=== PATIENT | male | born 1945 | race Caucasian/White ===

== ENCOUNTER 2020-04-05 09:31 | Outpatient (REF) | payer MEDICARE, SELFPAY ==
[2020-04-05 11:05] LABS: Estimated Average Glucose 128 mg/dL; Hemoglobin A1c % 6.1 %
[2020-04-05 11:12] LABS: Alanine Aminotransferase 45 U/L (0-40); Albumin Level 4.3 g/dL (3.5-5.0); Alkaline Phosphatase 66 U/L (39-117); Aspartate Amino Transferase 30 U/L (5-37); Bilirubin Direct 0.4 mg/dL (0.0-0.5); Bilirubin Total 0.7 mg/dL (0.0-1.0); Cholesterol 123 mg/dL; Glucose Fasting 151 mg/dL (60-99); HDL Cholesterol 44 mg/dL; LDL Cholesterol Calculated 61 mg/dl; Total Protein 6.6 g/dL (6.5-8.0); Triglycerides 93 mg/dL
[2020-04-05 12:33] LABS: Reflex LDLD? No
== END 2020-04-05 09:32 | disposition home or self-care (01) ==
LOC: HO.LAB 09:31
PROVIDERS: PCP Internal Medicine; Visit Provider Internal Medicine
DX: E11.9 Type 2 diabetes mellitus without complications (principal); E78.00 Pure hypercholesterolemia, unspecified
CPT/HCPCS: 36415; 80061; 80076; 82947; 83036

== ENCOUNTER 2020-10-04 11:10 | Outpatient (REF) | payer MEDICARE, SELFPAY ==
[2020-10-04 11:15] LABS: MANUAL DIFF FLAG NO
[2020-10-04 11:33] LABS: Basophils Percent Auto 0.6 % (0-2); Eosinophils Absolute Auto 0.2 X10*3/uL (0.0-0.4); Eosinophils Percent Auto 3.1 % (0-4); Hemoglobin 14.2 g/dl (14.0-18.0); Imm Gran Abs Auto 0.03 X10*3/uL (0.00-0.03); Imm Gran Pct Auto 0.5 % (0.0-0.4); Lymphocytes Absolute Auto 1.2 X10*3/uL (1.2-4.9); Lymphocytes Percent Auto 17.7 % (20-40); Mean Corpuscular HGB Conc 33.8 g/dl (31.0-36.0); Mean Corpuscular Hemoglobin 32.7 pg (27.0-33.0); Mean Corpuscular Volume 96.8 fL (80-98); Mean Platelet Volume 10.1 fL (9.4-12.4); Monocytes Absolute Auto 0.8 X10*3/uL (0.1-1.2); Monocytes Percent Auto 12.9 % (2-11); Neutrophils Absolute Auto 4.2 X10*3/uL (2.0-8.3); Neutrophils Percent Auto 65.2 % (45-73); Platelet Count 330 X10*3/uL (160-400); Red Blood Count 4.34 X10*6/uL (4.60-5.80); Red Cell Distribution Width 12.4 % (11.0-16.0); White Blood Count 6.5 X10*3/uL (4.8-10.8)
[2020-10-04 11:36] LABS: Estimated Average Glucose 137 mg/dL; Hemoglobin A1c % 6.4 %
[2020-10-04 12:02] LABS: PSA,Total (Free>4and<10) 1.09 ng/mL (0.00-4.00)
[2020-10-04 12:28] LABS: Glucose Urine UA NEG (NEG); Leukocyte Esterase Urine NEG (NEG); Nitrite Urine NEG (NEG); Urine Blood NEG (NEG); Urine Ketones NEG (NEG); Urine Protein NEG (NEG-TRACE)
[2020-10-04 12:40] LABS: Appearance Urine CLEAR; Color Urine YELLOW
[2020-10-04 12:46] LABS: Creatinine Urine 188.15 mg/dL; Microalbum/Creatinine Ratio Ur 7.4 ug/mg cr
[2020-10-04 12:49] LABS: Alanine Aminotransferase 84 U/L (0-40); Albumin Level 4.2 g/dL (3.5-5.0); Alkaline Phosphatase 64 U/L (39-117); Anion Gap 16 (12-20); Aspartate Amino Transferase 49 U/L (5-37); Blood Urea Nitrogen 14 mg/dL (9-16); Calcium 8.9 mg/dL (8.4-10.2); Carbon Dioxide 22 mmol/L (22-29); Chloride 105 mmol/L (96-108); Cholesterol 195 mg/dL; Estimated Glomerular Filt Rate > 60; Glucose Fasting 157 mg/dL (60-99); HDL Cholesterol 42 mg/dL; LDL Cholesterol Calculated 111 mg/dl; Potassium 3.9 mmol/L (3.3-5.1); Sodium 139 mmol/L (135-145); Total Protein 6.7 g/dL (6.5-8.0); Triglycerides 213 mg/dL
[2020-10-04 13:43] LABS: Reflex LDLD? No
== END 2020-10-04 11:11 | disposition home or self-care (01) ==
LOC: HO.LNP 11:10
PROVIDERS: Visit Provider Internal Medicine
DX: Z00.00 Encounter for general adult medical examination without abnormal findings (principal); E11.9 Type 2 diabetes mellitus without complications; I10 Essential (primary) hypertension; E78.00 Pure hypercholesterolemia, unspecified; Z12.5 Encounter for screening for malignant neoplasm of prostate
CPT/HCPCS: 80053; 80061; 81003; 82043; 83036; 84153; 85025

== ENCOUNTER 2021-01-11 11:25 | Outpatient (REF) | payer MEDICARE, SELFPAY ==
[2021-01-11 12:07] LABS: Estimated Average Glucose 126 mg/dL; Hemoglobin A1C 151.2111 umol/L
[2021-01-11 13:08] LABS: Alanine Aminotransferase 69 U/L (0-40); Albumin Level 4.2 g/dL (3.5-5.0); Alkaline Phosphatase 60 U/L (39-117); Aspartate Amino Transferase 43 U/L (5-37); Bilirubin Direct 0.4 mg/dL (0.0-0.5); Bilirubin Total 0.9 mg/dL (0.0-1.0); Cholesterol 198 mg/dL; Glucose Fasting 159 mg/dL (60-99); HDL Cholesterol 46 mg/dL; LDL Cholesterol Calculated 119 mg/dl; Total Protein 6.6 g/dL (6.5-8.0); Triglycerides 166 mg/dL
[2021-01-11 14:01] LABS: Reflex LDLD? No
== END 2021-01-11 11:26 | disposition home or self-care (01) ==
LOC: HO.LNP 11:25
PROVIDERS: PCP Internal Medicine; Visit Provider Internal Medicine
DX: E11.9 Type 2 diabetes mellitus without complications (principal); E78.00 Pure hypercholesterolemia, unspecified
CPT/HCPCS: 80061; 80076; 82947; 83036

== ENCOUNTER 2021-04-28 10:09 | Outpatient (REF) | payer MEDICARE, SELFPAY ==
[2021-04-28 10:38] LABS: Alanine Aminotransferase 38 U/L (0-40); Albumin Level 4.3 g/dL (3.5-5.0); Alkaline Phosphatase 67 U/L (39-117); Aspartate Amino Transferase 24 U/L (5-37); Bilirubin Direct 0.6 mg/dL (0.0-0.5); Bilirubin Total 1.3 mg/dL (0.0-1.0); Cholesterol 125 mg/dL; HDL Cholesterol 43 mg/dL; LDL Cholesterol Calculated 62 mg/dl; Total Protein 6.7 g/dL (6.5-8.0); Triglycerides 104 mg/dL
[2021-04-28 11:35] LABS: Reflex LDLD? No
== END 2021-04-28 10:10 | disposition home or self-care (01) ==
LOC: HO.LNP 10:09
PROVIDERS: Visit Provider Internal Medicine
DX: E78.00 Pure hypercholesterolemia, unspecified (principal)
CPT/HCPCS: 80061; 80076

== ENCOUNTER 2021-10-06 10:56 | Outpatient (REF) | payer MEDICARE, SELFPAY ==
[2021-10-06 11:00] LABS: MANUAL DIFF FLAG NO
[2021-10-06 11:44] LABS: Appearance Urine CLEAR; Basophils Percent Auto 0.6 % (0-2); Color Urine YELLOW; Eosinophils Absolute Auto 0.2 X10*3/uL (0.0-0.4); Eosinophils Percent Auto 2.3 % (0-4); Glucose Urine UA NEG (NEG); Hematocrit 40.8 % (42.0-52.0); Hemoglobin 14.5 g/dl (14.0-18.0); Imm Gran Abs Auto 0.02 X10*3/uL (0.00-0.03); Imm Gran Pct Auto 0.3 % (0.0-0.4); Leukocyte Esterase Urine NEG (NEG); Lymphocytes Absolute Auto 1.4 X10*3/uL (1.2-4.9); Lymphocytes Percent Auto 21.6 % (20-40); Mean Corpuscular HGB Conc 35.5 g/dl (31.0-36.0); Mean Corpuscular Hemoglobin 33.1 pg (27.0-33.0); Mean Corpuscular Volume 93.2 fL (80.0-98.0); Mean Platelet Volume 9.6 fL (9.4-12.4); Monocytes Absolute Auto 0.9 X10*3/uL (0.1-1.2); Monocytes Percent Auto 13.8 % (2-11); Neutrophils Absolute Auto 4.1 x10*3/uL (2.0-8.3); Neutrophils Percent Auto 61.4 % (45-73); Nitrite Urine NEG (NEG); Platelet Count 320 X10*3/uL (160-400); Red Blood Count 4.38 X10*6/uL (4.60-5.80); Red Cell Distribution Width 12.3 % (11.0-16.0); Specific Gravity - Urine 1.025 (1.005-1.025); Urine Blood NEG (NEG); Urine Ketones 5 MG/DL (NEG); Urine Protein NEG (NEG-TRACE); White Blood Count 6.6 X10*3/uL (4.8-10.8)
[2021-10-06 12:03] LABS: Estimated Average Glucose 123 mg/dL; Hemoglobin A1c % 5.9 %
[2021-10-06 12:09] LABS: Squamous Epithelial Cell Urine TRACE /LPF
[2021-10-06 12:10] LABS: RBC Urine 0-2 /HPF (0); WBC Urine 0-2 /HPF (0-4)
[2021-10-06 12:15] LABS: Alanine Aminotransferase 46 U/L (0-40); Albumin Level 4.4 g/dL (3.5-5.0); Alkaline Phosphatase 57 U/L (39-117); Anion Gap 17 (12-20); Aspartate Amino Transferase 29 U/L (5-37); Bilirubin Total 1.3 mg/dL (0.0-1.0); Blood Urea Nitrogen 16 mg/dL (9-16); Calcium 9.3 mg/dL (8.4-10.2); Carbon Dioxide 23 mmol/L (22-29); Chloride 103 mmol/L (96-108); Cholesterol 121 mg/dL; Estimated Glomerular Filt Rate > 60; Glucose Fasting 142 mg/dL (60-99); HDL Cholesterol 48 mg/dL; LDL Cholesterol Calculated 57 mg/dl; Potassium 3.6 mmol/L (3.3-5.1); Sodium 139 mmol/L (135-145); Total Protein 6.7 g/dL (6.5-8.0); Triglycerides 83 mg/dL
[2021-10-06 12:39] LABS: Creatinine Urine 180.93 mg/dL; Microalbum/Creatinine Ratio Ur 6.6 ug/mg cr
== END 2021-10-06 10:57 | disposition home or self-care (01) ==
LOC: HO.LNP 10:56
PROVIDERS: Visit Provider Internal Medicine
DX: Z00.00 Encounter for general adult medical examination without abnormal findings (principal); E11.9 Type 2 diabetes mellitus without complications; I10 Essential (primary) hypertension; E78.00 Pure hypercholesterolemia, unspecified; Z12.5 Encounter for screening for malignant neoplasm of prostate
CPT/HCPCS: 80053; 80061; 81001; 82043; 83036; 84153; 85025

== ENCOUNTER 2021-11-07 10:42 | Day surgery (SDC) | payer MEDICARE, SELFPAY ==
[2021-11-02 09:25] VITALS: BMI 33.0
--- NOTE | 2021-11-04 13:12 | MHC.SHP ---
Pre-Procedural Eval Section A Date of Service: 11/04/21 The patient is an INPATIENT: No Changes since office visit: No Cold of Flu in the past 2 weeks, No New Medical Problems, No Changes in Medication and No Patient answered all questions The History & Physical has been completed within 30 days and I have reviewed it.: Yes Section B Chief Complaint: descemetocele,ectropion Allergies: Allergies Allergy/AdvReac Type Severity Reaction Status Date / Time No Known Allergies Allergy Unverified 11/13/19 15:40 Plan Diagnosis/Plan: Unchanged I have reviewed the history and physical and performed a pertinent physical examination on my patient. No changes have occurred unless specified.
[2021-11-07] VITALS (8 sets, daily range): BP systolic 141–181; BP diastolic 66–87; PULSE 76–90; RESP 15–18; TEMP 36.1–36.3; O2SAT 95–98
[2021-11-07 13:31] LABS: Glucose, Whole Blood 144 mg/dL (60-115)
[2021-11-07] MEDS: Lactated Ringers 500 ML 50 ML IVCONT (13:59)
--- NOTE | 2021-11-07 14:04 | P.CONAN_ITS ---
HPI - Anesthesia Eval Consult details Narrative: 76 M for Evisceration right eye HT[facility] Past Medical History Medical History (Updated 11/02/21 @ 09:22 by Kasandra Cook RN) Diabetes Elevated cholesterol HTN (hypertension) Functional capacity: independent ambulation Family History Family history of problems with anesthesia: No Surgical History Surgical History (Updated 11/02/21 @ 09:24 by Kasandra Cook RN) H/O colonoscopy Hx laparoscopic cholecystectomy Hx of appendectomy Hx of bilateral cataract extraction Hx of exploratory laparotomy History of Problems with Anesthesia: No Social History Social History Are you a primary lawn care specialist to a significant other at home: No Do you presently have visiting nurse or other home services: No Patient Tobacco Use Status: Former Tobacco user Quit Date: age 46 Tobacco use type: Cigarette Use of substances other than those prescribed or required for medical reasons: Yes Substance Use Frequency: Occasionally Have you been hit, kicked, punched, or otherwise hurt by someone within the past year? If so, by whom?: No Are you DNR?: No Advance Directives Information Provided: Yes (as above noted) Advance Directives on File: No Recently lost weight without trying: No Eating poorly because of decreased appetite: No Nutrition Risks: Surgical patient >75years Poor oral hygiene: No (lower partial) Meds Allergies Allergy/AdvReac Type Severity Reaction Status Date / Time No Known Allergies Allergy Unverified 11/13/19 15:40 Active Medications: Current Medications Lactated Ringer's (Lr) 500 mls @ 50 mls/hr IVCONT .Q10H MARIANNA Last Admin: 11/07/21 13:59 Dose: 50 mls/hr Povidone Iodine (Povidone Iodine 5 % Ophth Soln 30 Ml Bottle) 1 appl EYE-RIGHT PREOP PRN PRN Reason: Pre-Op Surgical Implant Prophy Home Medications Medication Instructions Recorded Confirmed Last Taken Type atorvastatin 10 mg tablet 10 mg PO DAILY 11/02/21 11/02/21 Unknown History diltiazem HCl 240 mg capsule,24 240 mg PO DAILY 11/02/21 11/02/21 11/07/21 History hr,extended release hydrochlorothiazide 25 mg tablet 25 mg PO DAILY 11/02/21 11/02/21 Unknown Hist ory metformin 500 mg tablet 500 mg PO BID 11/02/21 11/02/21 Unknown History quinapril 40 mg tablet 40 mg PO DAILY 11/02/21 11/02/21 Unknown History Exam Exam Date and Time: November 07, 2021 1404 Height,Weight and Vital Signs: Height 5 ft 10 in Weight 104.326 kg Last Vital Signs Temp 97.0 F 11/07/21 13:19 Pulse 76 11/07/21 13:19 Resp 18 11/07/21 13:19 BP 178/84 H 11/07/21 13:19 Pulse Ox 98 11/07/21 13:19 O2 Del Method 11/07/21 13:19 Pertinent Lab Results Pertinent Lab Results: Laboratory Tests 11/07/21 13:27 POC Glucose 144 H Airway Mallampati Class: IV Neck ROM: Full Partial: Lower Loose/Missing/Broken Teeth: Yes (Poor dention globally ) Heart: S1,S2 Lungs: b/l breath sounds Assessment and Plan Assessment Anesthesia Assessment: Anesthesia Plan Discussed and Chart Reviewed Final Anesthetic Review Family History of Problems with Anesthesia: No History of Problems with Anesthesia: No NPO: Yes ASA Class: III Final Preanesthetic Review: Meds/Allgs Chart Reviewed, Consent Obtained/Reviewed and Anes Risks/Benef Reviewed Patient Risk: Intermediate Procedure Risk: Intermediate Anesthetic Plan Anesthetic Plan: GA Disposition: Standard PACU
--- NOTE | 2021-11-07 14:30 | HO.PNOPHT ---
Ophthalmology Procedure Procedure Date of Service: 11/07/21 Ophthalmology Viscoelastic: Not Applicable Ophthalmology Lenses: Not Applicable Procedure Notes: PREOPERATIVE DIAGNOSIS: Right lower lid entropion POSTOPERATIVE DIAGNOSIS: Same PROCEDURE: Right lateral tarsal strip SURGEON: Lacho Daniel M.D. ANESTHESIA: MAC with Local ESTIMATED BLOOD LOSS: None COMPLICATIONS: None After obtaining informed consent, the patient was brought to the operating room suite, placed in supine position. After adequate sedation per Anesthesia, a local injection of 2% Lidocaine was given temporally to the right periorbital area. A canthotomy cantholysis then was created first utilizing a hemostat followed by excision with Guerra scissors out to the periosteal rim. A lateral tarsal strip was created utilizing a combination of sharp and blunt dissection with Asya scissors, as well as 15 blade. Once the lateral tarsal strip was created, double armed 5-0 goretex suture was utilized to attach the lateral tarsal strip to the lateral temporal periorbital periosteum. The tarsal was adjusted until adequate aposition of the lid to globe was achieved and sutured in place. The skin was then closed with 6-0 plain suture. Erythromycin ointment was placed on the wound. The patient tolerated the procedure well and will be followed up.
--- NOTE | 2021-11-08 03:19 | OP_ITS ---
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 PROCEDURE PERFORMED: Evisceration of the right eye. ESTIMATED BLOOD LOSS: COMPLICATIONS: ANESTHESIA: General. 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 DESCRIPTION OF PROCEDURE: After obtaining informed consent, the patient was brought to the operating room suite and placed in the supine position. After being placed under general anesthesia, the right eye was prepped and draped in the usual sterile fashion. Attention was directed to the right eye____ where a retrobulbar injection was performed. A lid speculum was placed and a 360-degree peritomy was completed. Previously placed hardware was run into during the peritomy and removed. Once the conjunctiva was freed, the cornea was excised from the eye utilizing a 15 Supersharp blade. An evisceration spoon was then utilized to remove the internal contents of the eye. An 18 silicone ball was placed into the globe after the eye was treated with an alcohol sponge. The sclera appeared white prior to the placement of the ball. The wound was then closed with a 5-0 Surgilon. The conjunctiva was closed separately with a 6-0 plain suture. Antibiotic ointment was instilled. The patient tolerated the procedure well. The lid speculum was removed and the patient will be seen in followup in a week or two. Lacho Daniel MD KH/MODL / [id number] MTDD
== END 2021-11-07 18:05 | disposition home or self-care (01) ==
PROVIDERS: PCP Internal Medicine; Visit Provider Ophthalmology
PROC: (CPT 65093; principal; 2021-11-07 14:10)
PROC: (CPT 65093; 2021-11-07 14:10)
DX: H18.7 Other and unspecified corneal deformities (principal); H02.102 Unspecified ectropion of right lower eyelid; E11.9 Type 2 diabetes mellitus without complications; I10 Essential (primary) hypertension; Z79.84 Long term (current) use of oral hypoglycemic drugs; Z79.899 Other long term (current) drug therapy; H02.002 Unspecified entropion of right lower eyelid
CPT/HCPCS: 65093; 67917; 82947; 88300; 88304; J0131; J1170; J2405; J2795; J3010

== ENCOUNTER 2022-04-14 10:42 | Outpatient (REF) | payer MEDICARE, SELFPAY ==
[2022-04-14 11:12] LABS: Estimated Average Glucose 137 mg/dL; Hemoglobin A1c % 6.4 %
[2022-04-14 11:31] LABS: Alanine Aminotransferase 71 U/L (0-40); Albumin Level 4.4 g/dL (3.5-5.0); Alkaline Phosphatase 62 U/L (39-117); Aspartate Amino Transferase 46 U/L (5-37); Bilirubin Direct 0.5 mg/dL (0.0-0.5); Bilirubin Total 1.8 mg/dL (0.0-1.0); Cholesterol 138 mg/dL; Glucose Fasting 141 mg/dL (60-99); HDL Cholesterol 52 mg/dL; LDL Cholesterol Calculated 66 mg/dl; Total Protein 6.8 g/dL (6.5-8.0); Triglycerides 100 mg/dL
[2022-04-14 13:51] LABS: Reflex LDLD? No
== END 2022-04-14 10:43 | disposition home or self-care (01) ==
LOC: HO.LNP 10:42
PROVIDERS: Visit Provider Internal Medicine
DX: E11.9 Type 2 diabetes mellitus without complications (principal); E78.00 Pure hypercholesterolemia, unspecified
CPT/HCPCS: 80061; 80076; 82947; 83036

== ENCOUNTER 2022-10-12 11:40 | Outpatient (REF) | payer MEDICARE, SELFPAY ==
[2022-10-12 12:03] LABS: MANUAL DIFF FLAG NO
[2022-10-12 12:21] LABS: Basophils Absolute Auto 0.1 X10*3/uL (0.0-0.2); Basophils Percent Auto 0.9 % (0-2); Eosinophils Absolute Auto 0.2 X10*3/uL (0.0-0.4); Eosinophils Percent Auto 3.2 % (0-4); Hematocrit 38.7 % (42.0-52.0); Hemoglobin 13.4 g/dl (14.0-18.0); Imm Gran Abs Auto 0.03 X10*3/uL (0.00-0.03); Imm Gran Pct Auto 0.4 % (0.0-0.4); Lymphocytes Absolute Auto 1.3 X10*3/uL (1.2-4.9); Lymphocytes Percent Auto 18.7 % (20-40); Mean Corpuscular HGB Conc 34.6 g/dl (31.0-36.0); Mean Corpuscular Hemoglobin 32.6 pg (27.0-33.0); Mean Corpuscular Volume 94.2 fL (80.0-98.0); Mean Platelet Volume 9.3 fL (9.4-12.4); Monocytes Absolute Auto 0.9 X10*3/uL (0.1-1.2); Monocytes Percent Auto 12.3 % (2-11); Neutrophils Absolute Auto 4.5 x10*3/uL (2.0-8.3); Neutrophils Percent Auto 64.5 % (45-73); Platelet Count 384 X10*3/uL (160-400); Red Blood Count 4.11 X10*6/uL (4.60-5.80); White Blood Count 6.9 X10*3/uL (4.8-10.8)
[2022-10-12 12:22] LABS: Appearance Urine Clear; Color Urine Yellow; Glucose Urine UA Negative (Negative); Leukocyte Esterase Urine Trace (Negative); Nitrite Urine Negative (Negative); PH 6.5 (5.0-9.0); UMIC TRIGGER UACC YES; Urine Blood Negative (Negative); Urine Ketones Trace mg/dL (Negative); Urine Protein Trace mg/dL (Neg-Trace)
[2022-10-12 12:24] LABS: Bacteria Urine None Seen (None Seen); Hyaline Casts Urine 0-2 /LPF (0-2); RBC Urine 0-2 /HPF (0-2); Squamous Epithelial Cell Urine 0-2 /HPF (0-2); WBC Urine 0-5 /HPF (0-5)
[2022-10-12 12:29] LABS: Alanine Aminotransferase 31 U/L (0-40); Albumin Level 4.2 g/dL (3.5-5.0); Alkaline Phosphatase 59 U/L (39-117); Anion Gap 15 (12-20); Aspartate Amino Transferase 21 U/L (5-37); Bilirubin Total 0.5 mg/dL (0.0-1.0); Blood Urea Nitrogen 18 mg/dL (9-16); Calcium 9.5 mg/dL (8.4-10.2); Carbon Dioxide 23 mmol/L (22-29); Chloride 103 mmol/L (96-108); Estimated Glomerular Filt Rate > 60; Glucose Fasting 140 mg/dL (60-99); Sodium 137 mmol/L (135-145)
[2022-10-12 12:33] LABS: Estimated Average Glucose 120 mg/dL; Hemoglobin A1c % 5.8 %
[2022-10-12 12:50] LABS: PSA,Total (Free>4and<10) 1.22 ng/mL (0.00-4.00)
[2022-10-12 13:10] LABS: Creatinine Urine 221.42 mg/dL; Microalbum/Creatinine Ratio Ur 7.6 ug/mg cr
== END 2022-10-12 11:41 | disposition home or self-care (01) ==
LOC: HO.LNP 11:40
PROVIDERS: Visit Provider Internal Medicine
DX: Z00.00 Encounter for general adult medical examination without abnormal findings (principal); Z12.5 Encounter for screening for malignant neoplasm of prostate; E11.9 Type 2 diabetes mellitus without complications; E78.00 Pure hypercholesterolemia, unspecified; I10 Essential (primary) hypertension
CPT/HCPCS: 80053; 81001; 82043; 83036; 84153; 85025

== ENCOUNTER 2023-04-20 07:55 | Outpatient (REF) | payer MEDICARE, SELFPAY ==
[2023-04-20 08:14] LABS: MANUAL DIFF FLAG NO
[2023-04-20 08:18] LABS: Basophils Percent Auto 0.6 % (0-2); Eosinophils Absolute Auto 0.2 X10*3/uL (0.0-0.4); Eosinophils Percent Auto 2.4 % (0-4); Hematocrit 37.4 % (42.0-52.0); Hemoglobin 13.1 g/dl (14.0-18.0); Imm Gran Abs Auto 0.02 X10*3/uL (0.00-0.03); Imm Gran Pct Auto 0.3 % (0.0-0.4); Lymphocytes Absolute Auto 1.1 X10*3/uL (1.2-4.9); Lymphocytes Percent Auto 17.1 % (20-40); Mean Corpuscular Hemoglobin 32.3 pg (27.0-33.0); Mean Corpuscular Volume 92.3 fL (80.0-98.0); Mean Platelet Volume 8.7 fL (9.4-12.4); Monocytes Absolute Auto 0.8 X10*3/uL (0.1-1.2); Neutrophils Absolute Auto 4.5 x10*3/uL (2.0-8.3); Neutrophils Percent Auto 67.6 % (45-73); Platelet Count 371 X10*3/uL (160-400); Red Blood Count 4.05 X10*6/uL (4.60-5.80); Red Cell Distribution Width 12.7 % (11.0-16.0); White Blood Count 6.7 X10*3/uL (4.8-10.8)
[2023-04-20 08:50] LABS: Estimated Average Glucose 120 mg/dL; Hemoglobin A1c % 5.8 % (<6.0)
[2023-04-20 09:02] LABS: Alanine Aminotransferase 27 U/L (0-40); Albumin Level 4.1 g/dL (3.5-5.0); Alkaline Phosphatase 59 U/L (39-117); Aspartate Amino Transferase 24 U/L (5-37); Bilirubin Direct 0.4 mg/dL (0.0-0.5); Bilirubin Total 0.8 mg/dL (0.0-1.0); Cholesterol 127 mg/dL (<200); Glucose Fasting 148 mg/dL (60-99); HDL Cholesterol 44 mg/dL (>40); LDL Cholesterol Calculated 69 mg/dL (<100); Total Protein 6.8 g/dL (6.5-8.0); Triglycerides 70 mg/dL (<150)
[2023-04-20 10:43] LABS: Reflex LDLD? No
== END 2023-04-20 07:56 | disposition home or self-care (01) ==
LOC: HO.LAB 07:55
PROVIDERS: PCP Internal Medicine; Visit Provider Internal Medicine
DX: Z13.6 Encounter for screening for cardiovascular disorders (principal); D64.9 Anemia, unspecified
CPT/HCPCS: 36415; 80061; 80076; 82947; 83036; 85025

== ENCOUNTER 2023-07-26 10:48 | Outpatient (REF) | payer MEDICARE, SELFPAY ==
[2023-07-26 10:52] LABS: MANUAL DIFF FLAG NO
[2023-07-26 11:15] LABS: Basophils Absolute Auto 0.1 X10*3/uL (0.0-0.2); Basophils Percent Auto 0.8 % (0-2); Eosinophils Absolute Auto 0.2 X10*3/uL (0.0-0.4); Eosinophils Percent Auto 3.5 % (0-4); Hematocrit 36.8 % (42.0-52.0); Hemoglobin 12.8 g/dl (14.0-18.0); Imm Gran Abs Auto 0.04 X10*3/uL (0.00-0.03); Imm Gran Pct Auto 0.6 % (0.0-0.4); Lymphocytes Percent Auto 15.8 % (20-40); Mean Corpuscular HGB Conc 34.8 g/dl (31.0-36.0); Mean Corpuscular Hemoglobin 32.4 pg (27.0-33.0); Mean Corpuscular Volume 93.2 fL (80.0-98.0); Mean Platelet Volume 9.3 fL (9.4-12.4); Monocytes Absolute Auto 0.9 X10*3/uL (0.1-1.2); Monocytes Percent Auto 13.9 % (2-11); Neutrophils Absolute Auto 4.3 x10*3/uL (2.0-8.3); Neutrophils Percent Auto 65.4 % (45-73); Platelet Count 372 X10*3/uL (160-400); Red Blood Count 3.95 X10*6/uL (4.60-5.80); White Blood Count 6.5 X10*3/uL (4.8-10.8)
[2023-07-26 11:46] LABS: Iron 53 mcg/dL (45-160); Percent Iron Saturation 19 % (15-50); Total Iron Binding Capacity 282 mcg/dL (228-428); Unsaturated Iron Binding 229 ug/dL
== END 2023-07-26 10:49 | disposition home or self-care (01) ==
LOC: HO.LNP 10:48
PROVIDERS: Visit Provider Internal Medicine
DX: D64.9 Anemia, unspecified (principal)
CPT/HCPCS: 83540; 85025

== ENCOUNTER 2023-10-15 10:42 | Outpatient (REF) | payer MEDICARE, SELFPAY ==
[2023-10-15 10:47] LABS: MANUAL DIFF FLAG NO
[2023-10-15 11:07] LABS: Basophils Percent Auto 0.4 % (0-2); Eosinophils Absolute Auto 0.2 X10*3/uL (0.0-0.4); Eosinophils Percent Auto 2.5 % (0-4); Hematocrit 38.1 % (42.0-52.0); Hemoglobin 13.4 g/dl (14.0-18.0); Imm Gran Abs Auto 0.04 X10*3/uL (0.00-0.03); Imm Gran Pct Auto 0.5 % (0.0-0.4); Lymphocytes Absolute Auto 1.3 X10*3/uL (1.2-4.9); Mean Corpuscular HGB Conc 35.2 g/dl (31.0-36.0); Mean Corpuscular Hemoglobin 32.8 pg (27.0-33.0); Mean Corpuscular Volume 93.4 fL (80.0-98.0); Mean Platelet Volume 9.3 fL (9.4-12.4); Monocytes Percent Auto 12.4 % (2-11); Neutrophils Absolute Auto 5.5 x10*3/uL (2.0-8.3); Neutrophils Percent Auto 68.2 % (45-73); Platelet Count 433 X10*3/uL (160-400); Red Blood Count 4.08 X10*6/uL (4.60-5.80); Red Cell Distribution Width 12.8 % (11.0-16.0)
[2023-10-15 11:22] LABS: Estimated Average Glucose 117 mg/dL; Hemoglobin A1c % 5.7 % (<6.0)
[2023-10-15 11:26] LABS: Alanine Aminotransferase 16 U/L (0-40); Albumin Level 4.3 g/dL (3.5-5.0); Alkaline Phosphatase 67 U/L (39-117); Anion Gap 11 (12-20); Aspartate Amino Transferase 15 U/L (5-37); Bilirubin Total 0.8 mg/dL (0.0-1.0); Blood Urea Nitrogen 21 mg/dL (9-16); Calcium 10.3 mg/dL (8.4-10.2); Carbon Dioxide 25 mmol/L (22-29); Chloride 102 mmol/L (96-108); Cholesterol 127 mg/dL (<200); Estimated Glomerular Filt Rate > 60; Glucose Fasting 133 mg/dL (60-99); HDL Cholesterol 46 mg/dL (>40); LDL Cholesterol Calculated 63 mg/dL (<100); Potassium 4.1 mmol/L (3.3-5.1); Sodium 134 mmol/L (135-145); Total Protein 7.2 g/dL (6.5-8.0); Triglycerides 91 mg/dL (<150)
[2023-10-15 11:43] LABS: PSA,Total (Free>4and<10) 1.36 ng/mL (0.00-4.00)
[2023-10-15 13:27] LABS: Appearance Urine Clear; Color Urine Yellow; Glucose Urine UA Negative (Negative); Leukocyte Esterase Urine Negative (Negative); Nitrite Urine Negative (Negative); Urine Blood Negative (Negative); Urine Ketones Trace mg/dL (Negative); Urine Protein Negative (Neg-Trace)
[2023-10-15 13:31] LABS: Bacteria Urine None Seen (None Seen); Hyaline Casts Urine 0-2 /LPF (0-2); RBC Urine 0-2 /HPF (0-2); Squamous Epithelial Cell Urine 0-2 /HPF (0-2); WBC Urine 0-5 /HPF (0-5)
[2023-10-15 14:28] LABS: Creatinine Urine 112.58 mg/dL; Microalbum/Creatinine Ratio Ur 6.2 ug/mg cr (<30)
== END 2023-10-15 10:43 | disposition home or self-care (01) ==
LOC: HO.LNP 10:42
PROVIDERS: Visit Provider Internal Medicine
DX: Z00.00 Encounter for general adult medical examination without abnormal findings (principal); I10 Essential (primary) hypertension; E78.00 Pure hypercholesterolemia, unspecified; E11.40 Type 2 diabetes mellitus with diabetic neuropathy, unspecified; Z12.5 Encounter for screening for malignant neoplasm of prostate
CPT/HCPCS: 80053; 80061; 81001; 82043; 82570; 83036; 84153; 85025

== ENCOUNTER 2024-04-08 11:14 | Outpatient (REF) | payer MEDICARE, SELFPAY ==
[2024-04-08 11:52] LABS: Alanine Aminotransferase 15 U/L (0-40); Albumin Level 4.3 g/dL (3.5-5.0); Alkaline Phosphatase 68 U/L (39-117); Aspartate Amino Transferase 21 U/L (5-37); Bilirubin Direct 0.2 mg/dL (0.0-0.5); Bilirubin Total 0.5 mg/dL (0.0-1.0); Cholesterol 181 mg/dL (<200); Glucose Fasting 139 mg/dL (60-99); HDL Cholesterol 50 mg/dL (>40); LDL Cholesterol Calculated 103 mg/dL (<100); Total Protein 7.6 g/dL (6.5-8.0); Triglycerides 144 mg/dL (<150)
[2024-04-08 11:55] LABS: Estimated Average Glucose 120 mg/dL; Hemoglobin A1c % 5.8 % (<6.0); Total Hemoglobin (HGBA1C) 3713.4256 umol/L
--- OUTSIDE RECORDS SUMMARY | 2024-04-08 12:50 | XMS_ITS ---
Author Organization Ishmael Melissa MD Address [address] [place], [place] [id number] Care Team Providers Care Hide Washer Name Role Phone StevieIshmael lambert Primary Care Provider [phone] Results Component Value Reference Range Notes Complete Blood Count Auto Di ff Reviewed date:10/15/2023 12:58:01 PM Interpretation: Performing Lab:[facility], [address] [place] [phone] Notes/Report: White Blood Count 8.0 4.8-10.8 X10*3/uL Red Blood Count 4.08 4.60-5.80 X10*6/uL Hemoglobin 13.4 14.0-18.0 g/dl Hematocrit 38.1 42.0-52.0 % Mean Corpuscular Volume 93.4 80.0-98.0 fL Mean Corpuscular Hemoglobin 32.8 27.0-33.0 pg Mean Corpuscular HGB Conc 35.2 31.0-36.0 g/dl Red Cell Distribution Width 12.8 11.0-16.0 % Platelet Count 433 160-400 X10*3/uL Mean Platelet Volume 9.3 9.4-12.4 fL Neutrophils Percent Auto 68.2 45-73 % Imm Gran Pct Auto 0.5 0.0-0.4 % Lymphocytes Percent Auto 16.0 20-40 % Monocytes Percent Auto 12.4 2-11 % Eosinophils Percent Auto 2.5 0-4 % Basophils Percent Auto 0.4 0-2 % NRBC Pct Auto 0.0 0.0-0.2 /100WBC Neutrophils Absolute Auto 5.5 2.0-8.3 x10*3/u L Imm Gran Abs Auto 0.04 0.00-0.03 X10*3/uL Lymphocytes Absolute Auto 1.3 1.2-4.9 X10*3/u L Monocytes Absolute Auto 1.0 0.1-1.2 X10*3/uL Eosinophils Absolute Auto 0.2 0.0-0.4 X10*3/u L Basophils Absolute Auto 0.0 0.0-0.2 X10*3/uL NRBC Abs Auto 0.000 0.0-0.012 X10*3/uL Comprehensive [place]. Panel Fa st Reviewed date:10/15/2023 12:42:29 PM Interpretation: Performing Lab:[facility], [address] [place] [phone] Notes/Report: Sodium 134 135-145 mmol/L Potassium 4.1 3.3-5.1 mmol/L Chloride 102 96-108 mmol/L Carbon Dioxide 25 22-29 mmol/L Anion Gap 11 12-20 Blood Urea Nitrogen 21 9-16 mg/dL Creatinine 0.92 0.5-1.4 mg/dL Estimated Glomerular Filt Rate > 60 NOTE: For -Vincentian individuals, multiply the result by 1.210. Chronic Kidney Disease: Estimated GFR < 60 mL/min/1.73m2 Severe Kidney Disease: Estimated GFR < 15 mL/min/1.73m2 Glucose Fasting 133 60-99 mg/dL A fasting glucose of 126 mg/dl or greater on more than one occasion is considered diagnostic of diabetes. Calcium 10.3 8.4-10.2 mg/dL Bilirubin Total 0.8 0.0-1.0 mg/dL Aspartate Amino Transferase 15 5-37 U/L Alanine Aminotransferase 16 0-40 U/L Total Protein 7.2 6.5-8.0 g/dL Albumin Level 4.3 3.5-5.0 g/dL Alkaline Phosphatase 67 39-117 U/L Lipid Panel Reviewed date:10/15/2023 12:39:41 PM Interpretation: Performing Lab:[address] [phone] Notes/Report: Triglycerides 91 <150 mg/dL Desirable Triglyceride: less than 150 mg/dL Borderline High Triglyceride 150-199 mg/dL High Triglyceride: 200-499 mg/dL Very High Triglyceride: greater than or equal to 5OO mg/dL Cholesterol 127 <200 mg/dL Desirable Cholesterol: less than 200 mg/dL Borderline High Cholesterol: 200-239 mg/dL High Cholesterol: greater than 239 mg/dL LDL Cholesterol Calculated 63 <100 mg/dL Desirable LDL: less than 100 mg/dL Near Optimal/Above Optimal LDL: 110-129 mg/dL Borderline High LDL: 130-159 mg/dL High LDL: 160-189 mg/dL Very High LDL: greater than or equal to 190 mg/dL HDL Cholesterol 46 >40 mg/dL Desirable HDL: greater than 40 mg/dL Note: This HDL assay may give artificially low results in patients with liver disease. PSA,Total (Free>4and<10) Reviewed date:10/15/2023 12:40:31 PM Interpretation: Performing Lab:[address] [phone] Notes/Report: PSA,Total (Free>4and<10) 1.36 0.00-4.00 ng/mL A Free PSA was not performed: The percentage of Free PSA can be used to enhance the differentiation of prostate cancer from benign prostatic disease in subjects whose PSA levels are between 4.0 and 10.0 ng/mL. For subjects whose PSA levels are below 4.0 or above 10.0 ng/mL, the risk of prostate cancer is determined on the basis of the PSA alone. Therefore the % Free PSA is recommended only for those subjects whose PSA levels are between 4.0 and 10.0 ng/mL. PSA methodology: Gutiérrez Alinity i Chemiluminescent Microparticle Immunoassay (CMIA) Microalbumin, Random Reviewed date:10/15/2023 04:15:50 PM Interpretation: Performing Lab:[facility] [address] [phone] Notes/Report: Creatinine Urine 112.58 Microalbumin Urine 7.0 Microalbum/Creatinine Ratio Ur 6.2 <30 ug/mg cr Albumin/Creatinine Ratio Reference Ranges: Normal: < 30 ug/mg creatinine Microalbuminuria: 30 - 300 ug/mg creatinine Clinical Albuminuria: > 300 ug/mg creatinine Hemoglobin A1c Reviewed date:10/15/2023 12:38:53 PM Interpretation: Performing Lab:[address] [phone] Notes/Report: Hemoglobin A1c % 5.7 <6.0 % Hemoglobin A1C Reference Range Adults: 4.8 - 6.0 % Non diabetic: < 6.0 % Goal: < 7.0 % Additional Action Suggested: > 8.0 % Note: Hemoglobin A1c results are invalid for patients with abnormal amounts of HbF. Blood transfusions may impact the HbA1c concentration in the patient sample. Estimated Average Glucose 117 eAG = Estimated average glucose which is %A1C expressed as average glucose, using the formula of the Z3U-Exlcbch Average Glucose study (ADAG), Diabetes Care, Vol.31,#8, Sep. 2007 UA ClnCatch+Micro w/rflx Cul t Reviewed date:10/15/2023 04:16:30 PM Interpretation: Performing Lab:[address] [phone] Notes/Report: Urine, Clean Catch Color Urine Yellow Appearance Urine Clear PH 6.0 5.0-9.0 Glucose Urine UA Negative Negative mg/dL Urine Blood Negative Negative Specific [place] - Urine 1.020 1.005-1.025 Urine Protein Negative Neg-Trace mg/dL Urine Ketones Trace Negative mg/dL Nitrite Urine Negative Negative Leukocyte Esterase Urine Negative Negative RBC Urine 0-2 0-2 /HPF WBC Urine 0-5 0-5 /HPF Squamous Epithelial Cell Urine 0-2 0-2 /HPF Bacteria Urine None Seen None Seen Hyaline Casts Urine 0-2 0-2 /LPF REASON FOR VISIT FASTING LABS Encounters Encounter Location Date Provider Diagnosis Ishmael Melissa MD [address] [place], [place] [id number] 10/15/2023 Ishmael Melissa Blood tests for rout ine general physical examination Z00.00 ; Essential hypertension I10 ; Pure hypercholesterolemia E78.00 and Type 2 diabetes, controlled, 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 Assessments Encounter Date Diagnosis (ICD Code) Assessment Notes Treatment Notes Treatment Clinical Notes Section Notes 10/15/2023 Blood tests for rout ine general physical examination (ICD-10 - Z00.00) 10/15/2023 Essential hypertensi on (ICD-10 - I10) 10/15/2023 Pure hypercholesterolemia (ICD-10 - E78.00) 10/15/2023 Type 2 diabetes, controlled, with neuropathy (ICD-10 - E11.40) Plan Of Treatment Next Appt Details Provider Name:Ishmael oropeza, 04/22/2024 10:15:00 AM, [address], [address], [place], [place], [phone], Provider Name:Ishmael oropeza, 10/16/2024 07:15:00 AM, [address], [address], [place], [place], [phone], Provider Name:Ishmael oropeza, 10/23/2024 11:00:00 AM, [address], [address], [place], [place], [phone], Progress Notes * Dino LOPEZDOB: [birth year] (78 yo M)Acc No.[id number]:10/15/2023 Progress Note Patient:?Dino LOPEZ Provider:?Ishmael Melissa MD :1945???Age:78 Y???Sex:Male Aron e:10/15/2023 [id number] Subjective: * Chief Complaints: * ???1. FASTING LABS. * Medical History:? Objective: * Vitals:? 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 Plan: * Treatment: 2.?Essential hypertension?LAB: Complete Blood Count Auto Diff (Collection Date & Time - 10/15/2023 07:45 AM) ?LAB: Comprehensive [place]. Panel Fast (Collection Date & Time - 10/15/2023 07:45 AM) ?LAB: Lipid Panel (Collection Date & Time - 10/15/2023 07:45 AM) ?LAB: PSA,Total (Free>4and<10) (Collection Date & Time - 10/15/2023 07:45 AM) ?LAB: Microalbumin, Random (Collection Date & Time - 10/15/2023 07:45 AM) ?LAB: Hemoglobin A1c (Collection Date & Time - 10/15/2023 07:45 AM) ?LAB: UA ClnCatch+Micro w/rflx Cult (Collection Date & Time - 10/15/2023 07:45 AM) 3.?Pure hypercholesterolemia ?LAB: Complete Blood Count Auto Diff (Collection Date & Time - 10/15/2023 07:45 AM) ?LAB: Comprehensive [place]. Panel Fast (Collection Date & Time - 10/15/2023 07:45 AM) ?LAB: Lipid Panel (Collection Date & Time - 10/15/2023 07:45 AM) ?LAB: PSA,Total (Free>4and<10) (Collection Date & Time - 10/15/2023 07:45 AM) ?LAB: Microalbumin, Random (Collection Date & Time - 10/15/2023 07:45 AM) ?LAB: Hemoglobin A1c (Collection Date & Time - 10/15/2023 07:45 AM) ?LAB: UA ClnCatch+Micro w/rflx Cult (Collection Date & Time - 10/15/2023 07:45 AM) 4.?Type 2 diabetes, controll ed, with neuropathy?LAB: Complete Blood Count Auto Diff (Collection Date & Time - 10/15/2023 07:45 AM) ?LAB: Comprehensive [place]. Panel Fast (Collection Date & Time - 10/15/2023 07:45 AM) ?LAB: Lipid Panel (Collection Date & Time - 10/15/2023 07:45 AM) ?LAB: PSA,Total (Free>4and<10) (Collection Date & Time - 10/15/2023 07:45 AM) ?LAB: Microalbumin, Random (Collection Date & Time - 10/15/2023 07:45 AM) ?LAB: Hemoglobin A1c (Collection Date & Time - 10/15/2023 07:45 AM) ?LAB: UA ClnCatch+Micro w/rflx Cult (Collection Date & Time - 10/15/2023 07:45 AM) * Procedure Codes:?46817 VENIP UNCT, ROUTINE* * * The named appointment provid er may or may not be the originator of this progress note, and it is not deemed complete until electronically signed by the appointment provider. Sign off status: Pending * Provider:?Ishmael Melissa MD Date:?0 10/15/2023 Generated for Allie dennis/Kristyn/Radhaitting on:?04/08/2024 12:49 PM EST
--- OUTSIDE RECORDS SUMMARY | 2024-04-08 12:50 | XMS_ITS ---
Author Organization Ishmael Melissa MD Address [address] [place] [id number] Care Team Providers Care Media Senior Recruiter Name Role Phone BelénIshmael Primary Care Provider Results Component Value Reference Range Notes Hemoglobin A1c Reviewed date:04/08/2024 12:44:50 PM Interpretation: Performing Lab:[facility] [place], [address] [place] [phone] Notes/Report: Hemoglobin A1c % 5.8 <6.0 % Hemoglobin A1C Reference Range Adults: 4.8 - 6.0 % Non diabetic: < 6.0 % Goal: < 7.0 % Additional Action Suggested: > 8.0 % Note: Hemoglobin A1c results are invalid for patients with abnormal amounts of HbF. Blood transfusions may impact the HbA1c concentration in the patient sample. Estimated Average Glucose 120 eAG = Estimated average glucose which is %A1C expressed as average glucose, using the formula of the Z0Q-Osyywdd Average Glucose study (ADAG), Diabetes Care, Vol.31,#8, Sep. 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 Assessments Encounter Date Diagnosis (ICD Code) Assessment Notes Treatment Notes Treatment Clinical Notes Section Notes 04/08/2024 Pure hypercholesterolemia (ICD-10 - E78.00) 04/08/2024 Type 2 diabetes, controlled, with neuropathy (ICD-10 - E11.40) Plan Of Treatment Pending Test Test Name Order Date Liver Panel 04/08/2024 Glucose Fasting 04/08/2024 Lipid Panel with Reflex 04/08/2024 Next Appt Details Provider Name:Ishmael Delarosa ier, 04/22/2024 10:15:00 AM, [facility], [address] [facility], [place], [place], [phone], Provider Name:Ishmael Delarosa ier, 10/16/2024 07:15:00 AM, [address] [place] [address], [address] [facility], [place], [place], [phone], Provider Name:Ishmael Delarosa ier, 10/23/2024 11:00:00 AM, [address] [place] [address], [address] [facility], [place], [place], [phone], Progress Notes * Dino LOPEZDOB: [birth year] (78 yo M)Acc No.[id number]:04/08/2024 Progress Note Patient:?Dino LOPEZ Provider:?Ishmael Melissa MD :1945???Age:78 Y???Sex:Male Aron e:04/08/2024 Address[place] [address] [place] [id number] Subjective: * Chief Complaints: * ???1. Fasting lipids. * Medical History:? Objective: * Vitals:? 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 Plan: * Treatment: 2.?Type 2 diabetes, controll ed, with neuropathy?LAB: Liver Panel ?LAB: Glucose Fasting ?LAB: Lipid Panel with Reflex ?LAB: Hemoglobin A1c (Collection Date & Time - 04/08/2024 07:30 AM) * Procedure Codes:?60344 VENIP UNCT, ROUTINE* * * The named appointment provid er may or may not be the originator of this progress note, and it is not deemed complete until electronically signed by the appointment provider. Sign off status: Pending * Provider:?Ishmael Melissa MD Date:?0 04/08/2024 Generated for Allie dennis/Kristyn/Radhaitting on:?04/08/2024 12:50 PM EST
--- OUTSIDE RECORDS SUMMARY | 2024-04-08 12:50 | XMS_ITS | Patient Health Record ---
Author Organization Gamal Montejo DO, [facility] Address [address] [place], [place] [phone] Care Team Providers Care Benchroom Shop Optician Name Role Phone Ishmael Melissa MD Primary Care Provider Unavai lable ALLERGIES No Known Allergies REASON FOR REFERRAL No Information MEDICATIONS Medication SIG (Take, Route, Frequency, Duration) Notes Start Date End Date Status metFORMIN HCl 500 MG 1 tablet with a jaimie l Orally Twice a day Active Atorvastatin Calcium 10 MG 1 tablet Oral ly Once a day Active dilTIAZem HCl ER Coated Bead s 240 MG 1 capsule Orally Once a day Active hydroCHLOROthiazide 25 MG 1 tablet in morning Orally Once a day Active Quinapril HCl 40 MG 1 tablet Orally Once a day Active SOCIAL HISTORY Tobacco Use: Social History Observation Description Date Details (start date - stop date) Former Smoker NA - NA Sex Assigned At : Social History Observation Description Sex Assigned At Unknown Tobacco Use/Smoking Question Answer Notes Patient is a former smoker How long has it been since y ou last smoked? > 10 years Additional Findings: Tobacco Non-User Cu rrent non-smoker, currently using no form of tobacco Alcohol Screen Question Answer Notes Did you have a drink contain ing alcohol in the past year? Yes How often did you have a dri nk containing alcohol in the past year? 4 or more times a week (4 points) How many drinks did you have on a typical day when you were drinking in the past year? 1 or 2 drinks (0 point) How often did you have 6 or more drinks on one occasion in the past year? Never (0 point) Points 4 Interpretation Positive PROBLEMS Problem Type ICD Code Onset Dates Problem Status W/U Status Risk SNOMED Code Notes Problem Type 2 diabetes mellitus without complication, without long-term current use of insulin (E11.9) Active confirmed 677542149 Problem Primary hypertension (I10) Active confirmed 08406559 Problem Hypercholesterolemia (E78.00) Active confirmed [id number] PLAN OF TREATMENT No Information Insurance Providers Payer Name Payer Address Payer Phone Subscriber Number Group Number Insured Name Patient Relationship to Insured Coverage Start Date Coverage End Date [facility] [address] [place] [phone] [id number] Dino Lopez Self - patient is the insured MEDICARE [address] [place] [phone] [id number] Dino Lopez Self - patient is the insured MEDICAL (GENERAL) HISTORY Medical History History ICD Code type II diabetes mellitus hypertension hypercholesterolemia Surgical History Surgery Date(Month/Year) appendectomy cholecystectomy
--- OUTSIDE RECORDS SUMMARY | 2024-04-08 12:50 | XMS_ITS ---
Author Organization Ishmael Melissa MD Address [address] [place] [address] [phone] Care Team Providers Care Marble Cutter Name Role Phone Ishmael Melissa Primary Care Provider [phone] Allergies No Known Allergies REASON FOR VISIT ANNUAL EXAM Medications Medication SIG (Take, Route, Frequency, Duration) Notes Start Date End Date Status Triamcinolone Acetonide 0.1 % APPLY TO AFFECTED AREA TWICE A DAY FOR 2 WEEKS AND OFF FOR 1 WEEK AVOID FACE AND BODY FOLDS for 20 Not-Taking Tadalafil 20 MG TAKE ONE TABLET BY MOUTH EVERY DAY Active metFORMIN HCl 500 MG TAKE 1 TABLET BY MOUTH TWICE A DAY WITH A MEAL Active hydroCHLOROthiazide 25 MG TAKE 1 TABLET BY MOUTH EVERY DAY Active dilTIAZem HCl ER Coated Beads 240 MG TAKE 1 CAPSULE BY MOUTH EVERY DAY FOR 90 DAYS Active Betamethasone Dipropionate Aug 0.05 % 1 application Externally Once a day 01/13/2022 Active Atorvastatin Calcium 10 MG TAKE 1 TABLET BY MOUTH EVERY DAY Active Lisinopril 40 MG TAKE 1 TABLET BY MOUTH EVERY DAY (REPALCES QUINAPRIL) Active Social History Tobacco Use: Social History Observation Description Date Details (start date - stop date) Former Smoker NA - NA Tobacco Use/Smoking Question Answer Notes Patient is a former smoker How long has it been since y ou last smoked? 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 ; Annual physical exam Z00.00 ; Essential hypertension I10 ; Pure hypercholesterolemia E78.00 ; Erectile dysfunction, unspecified erectile dysfunction type N52.9 ; Intrinsic eczema L20.84 ; Colon cancer screening Z12.11 and Depression screening Z13.31 Assessments Encounter Date Diagnosis (ICD Code) Assessment Notes Treatment Notes Treatment Clinical Notes Section Notes 10/22/2023 Type 2 diabetes, controlled, with neuropathy (ICD-10 - E11.40) doing well, will contiue current regiment 10/22/2023 Annual physical exam (ICD-10 - Z00.00) labs reviewed and discussed with patient 10/22/2023 Essential hypertensi on (ICD-10 - I10) doing well on meds, will contiue current regiment 10/22/2023 Pure hypercholesterolemia (ICD-10 - E78.00) stable, will continue current regiment 10/22/2023 Erectile dysfunction , unspecified erectile dysfunction type (ICD-10 - N52.9) stable, will continue current regiment 10/22/2023 Intrinsic eczema (IC D-10 - L20.84) stabe, will cntiue current regiment 10/22/2023 Colon cancer screeni ng (ICD-10 - Z12.11) guaiac negative 10/22/2023 Depression screening (ICD-10 - Z13.31) negative screen Plan Of Treatment Medication Medication Name Sig Start Date Stop Date Notes Tadalafil 20 MG TAKE ONE TABLET BY M OUTH EVERY DAY metFORMIN HCl 500 MG TAKE 1 TABLET BY MO UTH TWICE A DAY WITH A MEAL hydroCHLOROthiazide 25 MG TAKE 1 TABLET BY MOUTH EVERY DAY dilTIAZem HCl ER Coated Bead s 240 MG TAKE 1 CAPSULE BY MOUTH EVERY DAY FOR 90 DAYS Betamethasone Dipropionate A ug 0.05 % 1 application Externally Once a day 01/13/2022 Atorvastatin Calcium 10 MG TAKE 1 TABLET BY MOUTH EVERY DAY Lisinopril 40 MG TAKE 1 TABLET BY JASKARAN TH EVERY DAY (REPALCES QUINAPRIL) Treatment Notes Assessment Notes Type 2 diabetes, controlled, with neurop athy doing well, will contiue current regiment Annual physical exam labs reviewed and d iscussed with patient Essential hypertension doing well on med s, will contiue current regiment Pure hypercholesterolemia stable, will c ontinue current regiment Erectile dysfunction, unspec ified erectile dysfunction type stable, will continue current regiment Intrinsic eczema stabe, will cntiue c urrent regiment Colon cancer screening guaiac negative Depression screening negative screen Next Appt Details Follow Up: 6 Months, Reason: Provider Name:Ishmael oropeza, 04/22/2024 10:15:00 AM, [address] [place] [address], [address] [place] [address], [phone], Provider Name:Ishmael oropeza, 10/16/2024 07:15:00 AM, [address] [place] [address], [address] [place] [address], [phone], Provider Name:Ishmael oropeza, 10/23/2024 11:00:00 AM, [address] [place] [address], [address] [place] [address], [phone], Progress Notes * Dino LOPEZDOB: [birth year] (78 yo M)Acc No.[id number]:10/22/2023 Progress Notes Patient:Dino Seth Provider:?Ishmael Melissa MD :1945???Age:78 Y???Sex:Male Aron e:10/22/2023 [id number] Subjective: * Chief Complaints: * ???ANNUAL EXAM * HPI: ???Depression Screening:?PHQ-9?Little interest or pleasure in doing things?Not at all,?Feeling down, depressed, or hopeless?Not at all,?Trouble falling or staying asleep, or sleeping too much?Not at all,?Feeling tired or having little energy?Not at all,?Poor appetite or overeating?Not at all,?Feeling bad about yourself or that you are a failure, or have let yourself or your family down?Not at all,?Trouble concentrating on things, such as reading the newspaper or watching television?Not at all,?Moving or speaking so slowly that other people could have noticed; or the opposite, being so fidgety or restless that you have been moving around a lot more than usual?Not at all,?Thoughts that you would be better off or of hurting yourself in some way?Not at all,?Total Score?0.?Communication Needs:?Communication Needs?Does the patient have a hearing impairment?No,?Does the patient have a vision impairment??Yes,?If yes, what is the vision impairment??Glasses,?Does the patient have a cognition impairment??No.?Fall Risk:?History?Have you had any falls with injury in the past year??No,?Have you had two or more falls in the past year??No.?SDOH Questions:?SDOH Questions?In the past year have you been worried about losing housing??No,?In the past year have you or any family members you live with been unable to get any of the following when it was really needed? Check all that apply:?None.?Symptom(s):? ismael is a 78 yo male here for annual visit [facility] review of recent labs and follow up of chronic issues. taking protein drink and his leg pain is less. * ROS:?General/Constitutional:?Patient denies?fatigue , headache.?Change in appetite?denies.?Chills?denies.?Fever?denies.?Ophthalmologic:?Blurred vision?denies.?Discharge?denies.?Pain?denies.?ENT:?Patient denies?decreased sense of smell , any loss of taste , sore throat.?Decreased hearing?denies.?Sore throat?denies.?Swollen glands?denies.?Endocrine:?Cold intolerance?denies.?Excessive thirst?denies.?Heat intolerance?denies.?Weight loss?denies.?Respiratory:?Cough?denies.?Shortness of breath at rest?denies.?Shortness of breath with exertion?denies.?Wheezing?denies.?Cardiovascular:?Chest pain at rest?denies.?Chest pain with exertion?denies.?Irregular heartbeat?denies.?Shortness of breath?denies.?Gastrointestinal:?Abdominal pain?denies.?Change in bowel habits?denies.?Diarrhea?denies.?Nausea?denies.?Rectal bleeding?denies.?Vomiting?denies .?Genitourinary:?Blood in urine?denies.?Difficulty urinating?denies.?Frequent urination?denies.?Musculoskeletal:?Patient denies?muscle aches.?Painful joints?denies.?Weakness?denies.?Peripheral Vascular:?Patient denies?red and blue toes.?Skin:?Dry skin?denies.?Itching?denies.?Denies?Mole(s),? changes in moles, new moles or any lesions of concern.?Denies?Photosensitivity.?Rash?denies.?Neurologic:?Dizziness?denies.?Fainting?denies.?Headache?denies.? * Medical History:? * Surgical History:? * Hospitalization/Major Diagno stic Procedure:? * Family History:?Father: dece ased 90 yrs.?Mother: 74 yrs, diagnosed with Diabetes.?3 brother(s) , 4 sister(s) . 2 son(s) , 1 daughter(s) . .? Denies mental health/substance abuse family history, Denies mental health/substance abuse family history Father- Colon Cancer Mother- Cardiac, No pertinent family medical history, Denies mental health/substance abuse family history, Denies mental health/substance abuse family history. * Social History:?Tobacco Use:?Tobacco Use/Smoking?Patient is a?former smoker,?How long has it been since you last smoked??> 10 years,?Additional Findings: Tobacco Non-User?Former smoker, currently using no form of tobacco.?Drugs/Alcohol:?Alcohol Screen?Did you have a drink containing alcohol in the past year??Yes,?How often did you have a drink containing alcohol in the past year??4 or more times a week (4 points),?How many drinks did you have on a typical day when you were drinking in the past year??1 or 2 drinks (0 point),?How often did you have 6 or more drinks on one occasion in the past year??Never (0 point),?Points?4,?Interpretation?Positive.?Miscellaneous:?Caffeine: yes, frequency:, 1-2 cups per day. Children: yes. Community involvements: none. no Exercise, YARD WORK ONCE AWEEK. Housing: owning. Living with: spouse. Marital status: . Occupation: left blank. Pets: cats:. no Travel outside of the [place]. * Medications:?TakingTadalafil 20 MG Tablet TAKE ONE TABLET BY MOUTH EVERY DAY Betamethasone Dipropionate Aug 0.05 % Gel 1 application Externally Once a dayhydroCHLOROthiazide 25 MG Tablet TAKE 1 TABLET BY MOUTH EVERY DAY metFORMIN HCl 500 MG Tablet TAKE 1 TABLET BY MOUTH TWICE A DAY WITH A MEAL dilTIAZem HCl ER Coated Beads 240 MG Capsule Extended Release 24 Hour TAKE 1 CAPSULE BY MOUTH EVERY DAY FOR 90 DAYS Lisinopril 40 MG Tablet TAKE 1 TABLET BY MOUTH EVERY DAY (REPALCES QUINAPRIL) Atorvastatin Calcium 10 MG Tablet TAKE 1 TABLET BY MOUTH EVERY DAY Taking Tadalafil 20 MG Tablet TAKE ONE TABLET BY MOUTH EVERY DAY Taking Betamethasone Dipropionate Aug 0.05 % Gel 1 application Externally Once a dayTaking hydroCHLOROthiazide 25 MG Tablet TAKE 1 TABLET BY MOUTH EVERY DAY Taking metFORMIN HCl 500 MG Tablet TAKE 1 TABLET BY MOUTH TWICE A DAY WITH A MEAL Taking dilTIAZem HCl ER Coated Beads 240 MG Capsule Extended Release 24 Hour TAKE 1 CAPSULE BY MOUTH EVERY DAY FOR 90 DAYS Taking Lisinopril 40 MG Tablet TAKE 1 TABLET BY MOUTH EVERY DAY (REPALCES QUINAPRIL) Taking Atorvastatin Calcium 10 MG Tablet TAKE 1 TABLET BY MOUTH EVERY DAY Not-Taking/PRNTriamcinolone Acetonide 0.1 % Cream APPLY TO AFFECTED AREA TWICE A DAY FOR 2 WEEKS AND OFF FOR 1 WEEK AVOID FACE AND BODY FOLDS Medication List reviewed and reconciled with the patientNot-Taking/PRN Triamcinolone Acetonide 0.1 % Cream APPLY TO AFFECTED AREA TWICE A DAY FOR 2 WEEKS AND OFF FOR 1 WEEK AVOID FACE AND BODY FOLDS Medication List reviewed and reconciled with the patient * Allergies:?N.K.D.A.yes[Aller gies Verified] Objective: * Vitals:?Ht: 70.25, Wt:225, B VT:32.05, BP:120/54 weigfht is down 8 pounds since 04-26-23. * ???Past Orders: ???Lab:PSA,Total (Free>4and< 10) (Order Date - 10/15/2023) (Collection Date - 10/15/2023) ? Value Reference Range ?PSA,Total (Free>4and<10) 1.36 0.00-4.00 - ng/mL ???Lab:Microalbumin, Random (Order Date - 10/15/2023) (Collection Date - 10/15/2023) ? Value Reference Range ?Creatinine Urine 112.58 - m g/dL ?Microalbumin Urine 7.0 - mg/L ?Microalbum Creatinine Ratio Ur 6.2 <30 - ug/mg cr ???Lab:Hemoglobin A1c (Order Date - 10/15/2023) (Collection Date - 10/15/2023) ? Value Reference Range ?Hemoglobin A1c % 5.7 <6. 0 - % ?Estimated Average Glucose 117 - mg/dL ???Lab:Complete Blood Count Auto Diff (Order Date - 10/15/2023) (Collection Date - 10/15/2023) ? Value Reference Range ?White Blood Count 8.0 4. 8-10.8 - X10*3/uL ?Red Blood Count 4.08 L 4.60 -5.80 - X10*6/uL ?Hemoglobin 13.4 L 14.0-18.0 - g/dl ?Hematocrit 38.1 L 42.0-52.0 - % ?Mean Corpuscular Volume 93.4 80.0-98.0 - fL ?Mean Corpuscular Hemoglobin 32.8 27.0-33.0 - pg ?Mean Corpuscular HGB Conc 35.2 31.0-36.0 - g/dl ?Red Cell Distribution Width 12.8 11.0-16.0 - % ?Platelet Count 433 H 160-4 00 - X10*3/uL ?Mean Platelet Volume 9.3 L 9.4-12.4 - fL ?Neutrophils Percent Auto 68.2 45-73 - % ?Imm Gran Pct Auto 0.5 H 0. 0-0.4 - % ?Lymphocytes Percent Auto 16.0 L 20-40 - % ?Monocytes Percent Auto 12.4 H 2-11 - % ?Eosinophils Percent Auto 2.5 0-4 - % ?Basophils Percent Auto 0.4 0-2 - % ?NRBC Pct Auto 0.0 0.0-0. 2 - /100WBC ?Neutrophils Absolute Auto 5.5 2.0-8.3 - x10*3/uL ?Imm Gran Abs Auto 0.04 H 0. 00-0.03 - X10*3/uL ?Lymphocytes Absolute Auto 1.3 1.2-4.9 - X10*3/uL ?Monocytes Absolute Auto 1.0 0.1-1.2 - X10*3/uL ?Eosinophils Absolute Auto 0.2 0.0-0.4 - X10*3/uL ?Basophils Absolute Auto 0.0 0.0-0.2 - X10*3/uL ?NRBC Abs Auto 0.000 0.0-0. 012 - X10*3/uL ???Lab:UA ClnCatch+Micro w/r flx Cult (Order Date - 10/15/2023) (Collection Date - 10/15/2023) ? Value Reference Range ?Color Urine Yellow - ?Appearance Urine Clear - ?PH 6.0 5.0-9.0 - ?Glucose Urine UA Negative Neg ative - mg/dL ?Urine Blood Negative Negative - ?Specific [place] - Urine 1.020 1.005-1.025 - ?Urine Protein Negative Neg-Tr supriya - mg/dL ?Urine Ketones Trace Negati ve - mg/dL ?Nitrite Urine Negative Negati ve - ?Leukocyte Esterase Urine Negative Negative - ?RBC Urine 0-2 0-2 - /HPF ?WBC Urine 0-5 0-5 - /HPF ?Squamous Epithelial Cell Urine 0-2 0-2 - /HPF ?Bacteria Urine None Seen None Seen - ?Hyaline Casts Urine 0-2 0-2 - /LPF ???Lab:Comprehensive Warren. P prudence Fast (Order Date - 10/15/2023) (Collection Date - 10/15/2023) ? Value Reference Range ?Sodium 134 L 135-145 - mmo l/L ?Bilirubin Total 0.8 0.0- 1.0 - mg/dL ?Aspartate Amino Transferase 15 5-37 - U/L ?Alanine Aminotransferase 16 0-40 - U/L ?Total Protein 7.2 6.5-8. 0 - g/dL ?Albumin Level 4.3 3.5-5. 0 - g/dL ?Alkaline Phosphatase 67 39-117 - U/L ?Potassium 4.1 3.3-5.1 - mmol/L ?Chloride 102 96-108 - mm ol/L ?Carbon Dioxide 25 22-29 - mmol/L ?Anion Gap 11 L 12-20 - ?Blood Urea Nitrogen 21 H 9-16 - mg/dL ?Creatinine 0.92 0.5-1.4 - mg/dL ?Estimated Glomerular Filt Rate > 60 - ?Glucose Fasting 133 H 60-9 9 - mg/dL ?Calcium 10.3 H 8.4-10.2 - m g/dL ???Lab:Lipid Panel (Order Da te - 10/15/2023) (Collection Date - 10/15/2023) ? Value Reference Range ?Triglycerides 91 <150 - mg/dL ?Cholesterol 127 <200 - m g/dL ?LDL Cholesterol Calculated 63 <100 - mg/dL ?HDL Cholesterol 46 >40 - mg/dL * Examination: ???General Examination: ?GENERAL APPEARANCE:?well developed, well nourished, in no acute distress.?HEAD:?normocephalic, atraumatic.?EYES:?pupils equal, round, reactive to light and accommodation, sclera non-icteric.?EARS:?normal.?ORAL CAVITY:?mucosa moist.?THROAT:?clear.?NECK/THYROID:?neck supple, full range of motion, no cervical lymphadenopathy, no bruits.?SKIN:?warm and dry, no suspicious lesions.?HEART:?regular rate and rhythm, S1, S2 normal, no murmurs.?LUNGS:?clear to auscultation bilaterally.?ABDOMEN:?soft, nontender, nondistended, bowel sounds present, normal, no organomegaly , no masses palpable.?RECTAL EXAM:?normal tone, no external hemorrhoids, no masses palpable, prostate normal, stool guaiac negative.?MALE GENITOURINARY:? testes descended bilaterally, no testicular mass, prostate normal.?EXTREMITIES:?no clubbing, cyanosis, or edema.?NEUROLOGIC:?nonfocal, motor strength normal upper and lower extremities, sensory exam intact.?PODIATRIC:?no pulses, pinprick is diminished.?FOOT EXAM:?.? Assessment: * Assessment: 1.?Annual physical exam - Z0 0.00 (Primary)?2.?Type 2 diabetes, controlled, with neuropathy - E11.40?3.?Essential hypertension - I10?4.?Pure hypercholesterolemia - E78.00?5.?Erectile dysfunction, unspecified erectile dysfunction type - N52.9?6.?Intrinsic eczema - L20.84?7.?Colon cancer screening - Z12.11?8.?Depression screening - Z13.31? Plan: * Treatment: 2.?Type 2 diabetes, controll ed, with neuropathy? Continue metFORMIN HCl Tablet, 500 MG, TAKE 1 TABLET BY MOUTH TWICE A DAY WITH A MEAL.?? Notes: doing well, will contiue current regiment.?? 3.?Essential hypertension? Continue hydroCHLOROthiazide Tablet, 25 MG, TAKE 1 TABLET BY MOUTH EVERY DAY;?Continue dilTIAZem HCl ER Coated Beads Capsule Extended Release 24 Hour, 240 MG, TAKE 1 CAPSULE BY MOUTH EVERY DAY FOR 90 DAYS;?Continue Lisinopril Tablet, 40 MG, TAKE 1 TABLET BY MOUTH EVERY DAY (REPALCES QUINAPRIL).?? Notes: doing well on meds, will contiue current regiment.?? 4.?Pure hypercholesterolemia ? Continue Atorvastatin Calcium Tablet, 10 MG, TAKE 1 TABLET BY MOUTH EVERY DAY.?? Notes: stable, will continue current regiment.?? 5.?Erectile dysfunction, uns pecified erectile dysfunction type? Continue Tadalafil Tablet, 20 MG, TAKE ONE TABLET BY MOUTH EVERY DAY.?? Notes: stable, will continue current regiment.?? 6.?Intrinsic eczema? Continue Betamethasone Dipropionate Aug Gel, 0.05 %, 1 application, Externally, Once a day.?? Notes: stabe, will cntiue current regiment.?? 7.?Colon cancer screening? Notes: guaiac negative.?? 8.?Depression screening? Notes: negative screen.?? * Procedure Codes:? * Follow Up:?6 Months * * Sign off status: Completed true * Provider:?Ishmael Melissa MD Date:?0 10/22/2023 Generated for Allie dennis/Kristyn/Melanie on:?04/08/2024 12:50 PM EST History and Physical Notes * HPI (History of Present Illness) Category Sub-Category Detail Notes Category Not es Symptom(s) ismael is a 78 yo male here for annual visit [facility] review of recent labs and follow up of chronic issues. taking protein drink and his leg pain is less. Depression Screening PHQ-9 Little inte rest or pleasure in doing things: Not at all Feeling down, depressed, or hopeless: No t at all Trouble falling or staying asleep, or sl eeping too much: Not at all Feeling tired or having little energy: N ot at all Poor appetite or overeating: Not at all Feeling bad about yourself o r that you are a failure, or have let yourself or your family down: Not at all Trouble concentrating on thi ngs, such as reading the newspaper or watching television: Not at all Moving or speaking so slowly that other people could have noticed; or the opposite, being so fidgety or restless that you have been moving around a lot more than usual: Not at all Thoughts that you would be b suzie off or of hurting yourself in some way: Not at all Total Score: 0 SDOH Questions SDOH Questions In the past year have you been worried about losing housing?: No In the past year have you or any family members you live with been unable to get any of the following when it was really needed? Check all that apply:: None Fall Risk History Have you had any falls with injury i n the past year?: No Have you had two or more falls in the st year?: No Communication Needs Communication Needs Does the patient have a hearing impairment: No Does the patient have a vision impairmen t?: Yes ?If yes, what is the vision impairment?: Glasses Does the patient have a cognition impair ment?: No Examination Category Sub-Category Detail Notes Category Not es General Examination GENERAL APPEARANCE: well dev eloped, well nourished, in no acute distress HEAD: normocephalic, atrau matic EYES: pupils equal, round, reactive to light and accommodation, sclera non-icteric EARS: normal THROAT: clear NECK/THYROID: neck supple, full ra nge of motion, no cervical lymphadenopathy, no bruits HEART: regular rate and rhy thm, S1, S2 normal, no murmurs LUNGS: clear to auscultatio n bilaterally ABDOMEN: soft, nontender, non distended, bowel sounds present, normal, no organomegaly , no masses palpable NEUROLOGIC: nonfocal, motor stre ngth normal upper and lower extremities, sensory exam intact SKIN: warm and dry, no candelario picious lesions EXTREMITIES: no clubbing, cyanosi s, or edema MALE GENITOURINARY: testes descended luis eduardo aterally, no testicular mass, prostate normal RECTAL EXAM: normal tone, no exte rnal hemorrhoids, no masses palpable, prostate normal, stool guaiac negative ORAL CAVITY: mucosa moist FOOT EXAM: Date: 10/22/2023 no pulaes pinpr ick diminished PODIATRIC: no pulses, pinprick is diminished
[2024-04-08 13:21] LABS: Reflex LDLD? No
== END 2024-04-08 11:15 | disposition home or self-care (01) ==
LOC: HO.LNP 11:14
PROVIDERS: Visit Provider Internal Medicine
DX: E78.00 Pure hypercholesterolemia, unspecified (principal); E11.40 Type 2 diabetes mellitus with diabetic neuropathy, unspecified
CPT/HCPCS: 80061; 80076; 82947; 83036

== ENCOUNTER 2024-05-17 15:31 | Emergency (ER) | payer MEDICARE, SELFPAY ==
--- NOTE | ~2024-05-17 | XR_ITS ---
CLINICAL HISTORY: trauma 4 view left knee Comparison: None Findings: Bones intact. No dislocations. Severe tricompartmental degenerative changes. No joint effusion. No radiopaque foreign body. Diffuse vascular calcification. IMPRESSION: Severe tricompartmental degenerative change. No fracture or malalignment. This document has been electronically signed by: Colin Alcazar MD on 05/17/2024 17:22:05
--- NOTE | ~2024-05-17 | CT_ITS ---
CLINICAL HISTORY: fall CT cervical spine without contrast Comparison: None Findings: Vertebral alignment is within normal limits. Multilevel degenerative change of the cervical spine. No acute fractures or dislocations. No acute findings on limited view of the intracranial contents. No cervical fluid collections or masses. No consolidation or effusion at the lung apices. IMPRESSION: No acute findings. This document has been electronically signed by: Gama Edouard MD on 05/17/2024 19:55:23
--- NOTE | ~2024-05-17 | XR_ITS ---
CLINICAL HISTORY: trauma 3 view, pelvis and left hip Comparison: None Findings: Moderate degenerative changes at both femoral-acetabular joints. No fracture or acute malalignment. The soft tissues are unremarkable. IMPRESSION: No acute findings. Moderate degenerative changes This document has been electronically signed by: Colin Alcazar MD on 05/17/2024 17:22:25
--- NOTE | ~2024-05-17 | CT_ITS ---
CLINICAL HISTORY: Syncope and fall, head injury CT head without contrast Comparison: None Findings: No intra-axial mass, midline shift, hydrocephalus, or acute hemorrhage. Moderate cerebral atrophy. Mucosal thickening of the ethmoid air cells. There is a mucous retention cyst in the left frontoethmoidal recess. Right globe prosthesis present. No skull fracture. IMPRESSION: 1. No acute intracranial findings. This document has been electronically signed by: Gama Edouard MD on 05/17/2024 19:53:11
--- NOTE | ~2024-05-17 | XR_ITS ---
CLINICAL HISTORY: Unresponsiveness 1 view chest x-ray. Comparison: None Findings: The lungs are underexpanded with bronchovascular crowding. No focal consolidation. No effusion or pneumothorax. Cardiac and mediastinal contours are within normal limits. No acute osseous abnormality Impression: Underexpanded lungs with bronchovascular crowding. No definite acute process. This document has been electronically signed by: Colin Alcazar MD on 05/17/2024 17:22:07
--- NOTE | 2024-05-17 15:53 | ECG_ITS ---
Test Reason : HYPOTENSION Blood Pressure : */* mmHG Vent. Rate : 71 BPM Atrial Rate : 71 BPM P-R Int : 256 ms QRS Dur : 94 ms QT Int : 402 ms P-R-T Axes : 73 7 -3 degrees QTcB Int : 436 ms Sinus rhythm with 1st degree A-V block Cannot rule out Inferior infarct , age undetermined Abnormal ECG When compared with ECG of 04-Jun-2018 12:14, Aberrant conduction is no longer Present Referred By: Estefania Hanna Electronically Signed By: ALEXI DUCKWORTH MD
[2024-05-17 16:03] VITALS: BP 85/28; BP 88/46; PULSE 68; PULSE 72; RESP 16; TEMP 36.5; O2SAT 90; O2SAT 96; BMI 33.7
[2024-05-17 16:05] LABS: MANUAL DIFF FLAG NO
[2024-05-17 16:07] LABS: Basophils Absolute Auto 0.1 X10*3/uL (0.0-0.2); Basophils Percent Auto 0.5 % (0-2); Eosinophils Percent Auto 0.3 % (0-4); Hematocrit 35.3 % (42.0-52.0); Hemoglobin 12.6 g/dl (14.0-18.0); Imm Gran Abs Auto 0.04 X10*3/uL (0.00-0.03); Imm Gran Pct Auto 0.4 % (0.0-0.4); Lymphocytes Absolute Auto 0.8 X10*3/uL (1.2-4.9); Lymphocytes Percent Auto 8.7 % (20-40); Mean Corpuscular HGB Conc 35.7 g/dl (31.0-36.0); Mean Corpuscular Hemoglobin 32.3 pg (27.0-33.0); Mean Corpuscular Volume 90.5 fL (80.0-98.0); Mean Platelet Volume 8.7 fL (9.4-12.4); Monocytes Absolute Auto 0.8 X10*3/uL (0.1-1.2); Monocytes Percent Auto 8.2 % (2-11); Neutrophils Absolute Auto 7.6 x10*3/uL (2.0-8.3); Neutrophils Percent Auto 81.9 % (45-73); Platelet Count 315 X10*3/uL (160-400); Red Cell Distribution Width 12.8 % (11.0-16.0); White Blood Count 9.3 X10*3/uL (4.8-10.8)
[2024-05-17] MEDS: 0.9 % Sodium Chloride 1,000 ML 999 ML IV (16:07)
[2024-05-17 16:17] VITALS: BP 103/43; PULSE 77; RESP 18; O2SAT 96
[2024-05-17 16:19] LABS: Prothrombin Time 11.2 SEC (10.9-12.4)
[2024-05-17 16:30] VITALS: BP 113/43; PULSE 72; RESP 16; O2SAT 96
--- NOTE | 2024-05-17 16:33 | PC.NURSE ---
pt was out today and drinking when he fell hitting his head. he has a contusion to his forehead. Pt went home and passed out and fell forward out of chair. 2 IVs established after triage BP was in the 80s. systolic. NS infusing per orders. CT scan pending
[2024-05-17 16:45] VITALS: BP 130/60; PULSE 79; RESP 18; O2SAT 97
--- NOTE | 2024-05-17 16:45 | PC.NURSE ---
pt trialed off , RA sat in 97
--- NOTE | 2024-05-17 16:55 | ED_ITS ---
HPI - General Adult General Chief complaint: Head Injury Stated complaint: altered mental, fall, hx 2hrs Time Seen by Provider: 05/17/24 16:11 Source: patient, RN notes reviewed and old records reviewed Mode of arrival: EMS Limitations: no limitations History of Present Illness ED Provider: Bridger HPI narrative: 78-year-old male past medical history significant hypertension, hyperlipidemia, diabetes presents for evaluation after 2 separate falls today The patient reports that he was home alone around 130pm this afternoon, he fell to the ground injured his left leg and struck head Reports there was no loss of consciousness with this fall, he was able to get himself up. Around 3:30 p.m. this afternoon, about 30 minutes prior to arrival the patient was sitting in a recliner chair He reports that he passed out and fell to the ground He was unsure how long he was in the ground. This his daughter found him and called 911 He denies any pain at all including headache. He is not anticoagulated. He denies any recent medication changes. He currently takes metformin, hydrochlorothiazide, lisinopril, diltiazem He has not had any recent medication changes. He reports drinking 2 or 3 beers today and may be a shot or two. He reports that he drinks daily He denies any chest pain, shortness of breath, cough, fevers, chills, abdominal pain, nausea vomiting, diarrhea He was found to be hypotensive on arrival to 85/28 and was hypoxic without oxygen saturation of 90% on room air. Related Data Home Medications ?Medication ?Instructions ?Recorded ?Confirmed atorvastatin 10 mg tablet 10 mg PO DAILY 11/02/21 11/02/21 diltiazem HCl 240 mg capsule,24 240 mg PO DAILY 11/02/21 11/02/21 hr,extended release hydrochlorothiazide 25 mg tablet 25 mg PO DAILY 11/02/21 11/02/21 metformin 500 mg tablet 500 mg PO BID 11/02/21 11/02/21 quinapril 40 mg tablet 40 mg PO DAILY 11/02/21 11/02/21 Allergies Allergy/AdvReac Type Severity Reaction Status Date / Time No Known Allergies Allergy Verified 05/17/24 16:06 Review of Systems 2 Constitutional: Constitutional: Denies body ache(s), Denies chills, Denies frequent falls and Denies headache(s) Eyes: Eyes: Denies blurry vision Comments: prosthetic right eye ENT: Denies vertigo, Denies dizziness and Denies headache(s) Cardiovascular: Cardiovascular: Reports syncope and Denies dyspnea Respiratory: Respiratory: Denies cough and Denies dyspnea Gastrointestinal: Gastrointestinal: Denies abdominal pain, Denies nausea and Denies vomiting Musculoskeletal: Musculoskeletal: Denies back pain Integumentary/Breasts: Skin/Breast: Denies rash Neurologic: Denies vertigo, Denies dizziness, Reports syncope, Denies frequent falls and Denies headache(s) Psychiatric: Psychiatric: Denies anxiety PMFSH Past Medical History Medical History (Updated 05/17/24 @ 20:00 by Rafael Sparks) Diabetes Elevated cholesterol HTN (hypertension) Surgical History (Updated 11/02/21 @ 09:24 by Kasandra Cook RN) Hx of bilateral cataract extraction Hx of appendectomy Hx laparoscopic cholecystectomy Hx of exploratory laparotomy H/O colonoscopy Social History Social History Are you a primary field care coordinator to a significant other at home: No Do you presently have visiting nurse or other home services: No Alcohol intake: current Comment: medicated previously with IV tylenol Patient Tobacco Use Status: Former Tobacco user Tobacco use type: Cigarette Smoked in Last 30 Days: No Use of substances other than those prescribed or required for medical reasons: No Advance Directives: No Advance Directives Information Provided: No Physical Exam ED Vital Signs: Vital Signs - 24 hr 05/17/24 16:03 05/17/24 16:17 05/17/24 16:30 Temperature 97.7 F Pulse Rate 72 77 72 Respiratory Rate 16 18 16 Blood Pressure 85/28 L 103/43 L 113/43 L Pulse Oximetry 96 96 96 Oxygen Delivery Method Nasal Cannula Nasal Cannula Nasal Cannula Oxygen Flow Rate 2 2 05/17/24 16:45 Temperature Pulse Rate 79 Respiratory Rate 18 Blood Pressure 130/60 Pulse Oximetry 97 Oxygen Delivery Method Room Air Oxygen Flow Rate BMI result Body Mass Index 33.7 Const General: healthy appearing, comfortable, no acute distress, alert and awake Nutritional Appearance: well nourished Orientation/consciousness: patient oriented x3 HENMT Other: Left forehead contusion without deep laceration. Throat: Yes posterior oropharynx normal Eyes Other: Prosthetic right eye. Pupil on left is reactive, approximately 4 mm in diameter Resp Effort & Inspection: normal respiratory effort, able to speak in complete sentences, no audible wheezes and not labored Auscultation: clear to auscultation bilaterally Cardio Rate: regular rate Rhythm: regular rhythm GI Palpation (GI): Soft to palpation, not firm, nontender, no guarding and not rigid Auscultation: normoactive bowel sounds Skin General skin exam: elasticity normal Neuro General: patient oriented x3 Cranial nerves: Yes CN's II-XII intact bilaterally and Yes Bilaterally intact EOM present Cognition (Neuro): normal cognition Extrem Other: The patient has no tenderness to the left hip but does have some tenderness to the left knee without deformity. He has pain with active range of motion of the left hip any. No shortening or rotation of the left lower extremity. There was no tenderness to the right lower extremity and there is good range of motion. Course Reevaluation(s) Reevaluation #1: Patient remains awake, alert and oriented, apparently the patient told his daughter that he smoked marijuana in addition to drinking alcohol prior to his falls earlier. His blood pressure has improved nicely with 1 L of IV fluids. His most recent blood pressure is 130/60. His labs have no concerning abnormalities, still awaiting CT scan of the brain and cervical spine. Time: 17:51 Reevaluation #2: Patient's workup unremarkable. He has been ambulating around the department without any difficulty and without assistance. He was comfortable being discharged home, his daughter is comfortable with him going home. Time: 19:57 Medications Administered Discontinued Medications Generic Name Dose Route Start Last Admin Trade Name Freq PRN Reason Stop Dose Admin Sodium Chloride 1,000 mls @ 999 mls/hr 05/17/24 15:53 05/17/24 17:16 Ns IV 05/17/24 16:53 Infused .Q1H1M ONE Infusion Medical Decision Making Medical Decision Making [facility] Narrative: 78-year-old male presents for evaluation after what sounds like a mechanical fall around 1:30 p.m. and then a syncopal episode around 3:[address] scan of the brain and cervical spine, chest x-ray, x-ray of the left hip and knee, EKG, basic labs, orthostatics, urinalysis and an ethanol level. There was a broad differential this time. The patient was hypoxic and hypotensive. There are no signs of infections currently. Most likely differential is MARY LOU, hypovolemia, alcohol intoxication, alcohol abuse. Differential Diagnosis Differential Diagnoses: The differential diagnosis associated with the presentation includes As above Admission/Observation Consideration of admission/observation: Escalation of care including admission/observation considered Lab Data MDM Lab Attestation statement: I reviewed the patient's lab results. No leukocytosis. The patient has a chronic normocytic anemia that is consistent with his baseline. Normal platelet count. No significant electrolyte abnormalities warranting intervention. Patient's troponin within normal limits, he never had any chest pain. 05/17/24 16:00 05/17/24 16:00 Labs: Lab Results 05/17/24 Range/Units 16:00 WBC 9.3 (4.8-10.8) X10*3/uL RBC 3.90 L (4.60-5.80) X10*6/uL Hgb 12.6 L (14.0-18.0) g/dl Hct 35.3 L (42.0-52.0) % MCV 90.5 (80.0-98.0) fL MCH 32.3 (27.0-33.0) pg MCHC 35.7 (31.0-36.0) g/dl RDW 12.8 (11.0-16.0) % Plt Count 315 D (160-400) X10*3/uL MPV 8.7 L (9.4-12.4) fL Immature Gran % (Auto) 0.4 (0.0-0.4) % Neut % (Auto) 81.9 H (45-73) % Lymph % (Auto) 8.7 L (20-40) % [place] % (Auto) 8.2 (2-11) % Eos % (Auto) 0.3 (0-4) % Baso % (Auto) 0.5 (0-2) % Lymph # (Auto) 0.8 L (1.2-4.9) X10*3/uL [place] # (Auto) 0.8 (0.1-1.2) X10*3/uL Eos # (Auto) 0.0 (0.0-0.4) X10*3/uL Baso # (Auto) 0.1 (0.0-0.2) X10*3/uL Abs Immat Gran (auto) 0.04 H (0.00-0.03) X10*3/uL Absolute Neuts (auto) 7.6 (2.0-8.3) x10*3/uL Absolute Nucleated RBC 0.000 (0.0-0.012) X10*3/uL Nucleated RBC % (auto) 0.0 (0.0-0.2) /100WBC PT 11.2 (10.9-12.4) SEC INR 1.0 (0.9-1.1) Sodium 137 (135-145) mmol/L Potassium 4.5 (3.3-5.1) mmol/L Chloride 105 (96-108) mmol/L Carbon Dioxide 19 L (22-29) mmol/L Anion Gap 18 (12-20) BUN 26 H (9-16) mg/dL Creatinine 1.11 (0.5-1.4) mg/dL Estim Creat Clear Calc 65.9 Estimated GFR > 60 Random Glucose 130 H (60-115) mg/dL Calcium 9.0 D (8.4-10.2) mg/dL Total Bilirubin 0.6 (0.0-1.0) mg/dL Direct Bilirubin 0.1 (0.0-0.5) mg/dL AST 24 (5-37) U/L ALT 16 (0-40) U/L Alkaline Phosphatase 62 (39-117) U/L Troponin I High Sens 3.8 (<3.5-35.0) ng/L B-Natriuretic Peptide 92 (<100) pg/mL Total Protein 6.7 (6.5-8.0) g/dL Albumin 3.8 (3.5-5.0) g/dL Lipase 33 (8-78) U/L Ethyl Alcohol 15 mg/dL Influenza Type A (PCR) NEGATIVE (Negative) Influenza Type B (PCR) NEGATIVE (Negative) RSV RNA Qual (PCR) NEGATIVE (Negative) SARS-CoV-2 RNA (RT-PCR) NEGATIVE (Negative) Independent Interpretation I performed an independent interpretation of an: EKG Interpretation: Sinus rhythm with a first-degree AV block, [place] interval of 256. No ST segment elevation LA Radiology Impression Discussion of test interpretation with radiology: I have reviewed the radiologist's reading. Radiologist Impression: Findings: Vertebral alignment is within normal limits. Multilevel degenerative change of the cervical spine. No acute fractures or dislocations. No acute findings on limited view of the intracranial contents. No cervical fluid collections or masses. No consolidation or effusion at the lung apices. IMPRESSION: No acute findings. This document has been electronically signed by: Gama Edouard MD on 05/17/2024 19:55:23 Findings: No intra-axial mass, midline shift, hydrocephalus, or acute hemorrhage. Moderate cerebral atrophy. Mucosal thickening of the ethmoid air cells. There is a mucous retention cyst in the left frontoethmoidal recess. Right globe prosthesis present. No skull fracture. IMPRESSION: 1. No acute intracranial findings. This document has been electronically signed by: Gama Edouard MD on 05/17/2024 19:53:11 Findings: Bones intact. No dislocations. Severe tricompartmental degenerative changes. No joint effusion. No radiopaque foreign body. Diffuse vascular calcification. IMPRESSION: Severe tricompartmental degenerative change. No fracture or malalignment. This document has been electronically signed by: Colin Alcazar MD on 05/17/2024 17:22:05 Findings: Moderate degenerative changes at both femoral-acetabular joints. No fracture or acute malalignment. The soft tissues are unremarkable. IMPRESSION: No acute findings. Moderate degenerative changes This document has been electronically signed by: Colin Alcazar MD on 05/17/2024 17:22:25 Findings: The lungs are underexpanded with bronchovascular crowding. No focal consolidation. No effusion or pneumothorax. Cardiac and mediastinal contours are within normal limits. No acute osseous abnormality Impression: Underexpanded lungs with bronchovascular crowding. No definite acute process. This document has been electronically signed by: Colin Alcazar MD on 05/17/2024 17:22:07 Discharge Plan Discharge Clinical Impression: Syncope, Cannabis abuse Patient Disposition: Home, Self-Care Instructions: Syncope (ED) Additional Instructions: Your workup in the ER today was reassuring. This includes your blood work, your CT scan and x-rays. Follow-up with your primary doctor, return for new or worsening symptoms Prescriptions: No Action metformin 500 mg Tablet 500 mg PO BID atorvastatin 10 mg Tablet 10 mg PO DAILY diltiazem HCl 240 mg Capsule,Extended Release 24 Hr 240 mg PO DAILY quinapril 40 mg Tablet 40 mg PO DAILY hydrochlorothiazide 25 mg Tablet 25 mg PO DAILY Print Language: Slovak
[2024-05-17 16:56] LABS: Troponin-I High Sensitivity 3.8 ng/L (<3.5-35.0)
[2024-05-17 16:57] LABS: Alanine Aminotransferase 16 U/L (0-40); Albumin Level 3.8 g/dL (3.5-5.0); Alkaline Phosphatase 62 U/L (39-117); Anion Gap 18 (12-20); Aspartate Amino Transferase 24 U/L (5-37); Bilirubin Direct 0.1 mg/dL (0.0-0.5); Bilirubin Total 0.6 mg/dL (0.0-1.0); Blood Urea Nitrogen 26 mg/dL (9-16); Carbon Dioxide 19 mmol/L (22-29); Chloride 105 mmol/L (96-108); Creatinine Clr Calc Pharmacy 65.9; Estimated Glomerular Filt Rate > 60; Ethanol 15 mg/dL; Glucose Random 130 mg/dL (60-115); Lipase 33 U/L (8-78); Potassium 4.5 mmol/L (3.3-5.1); Sodium 137 mmol/L (135-145); Total Protein 6.7 g/dL (6.5-8.0)
[2024-05-17 17:06] LABS: B Type Natriuretic Peptide 92 pg/mL (<100)
[2024-05-17 17:31] LABS: Influenza A PCR NEGATIVE (Negative); Influenza B PCR NEGATIVE (Negative); Resp Syncy Virus RNA Qual PCR NEGATIVE (Negative); SARS COV2 PCR INHOUSE NEGATIVE (Negative)
[2024-05-17 20:09] VITALS: BP 126/56; PULSE 90; RESP 16; TEMP 36.8; O2SAT 98
[2024-05-17 20:18] VITALS: BP 126/56; PULSE 90; RESP 16; TEMP 36.8; O2SAT 98
== END 2024-05-17 20:19 | disposition home or self-care (01) ==
PROVIDERS: Emergency Medicine; Physician Assistant; Emergency Provider Emergency Medicine; PCP Internal Medicine
DX: R55 Syncope and collapse (principal); F12.10 Cannabis abuse, uncomplicated; I95.9 Hypotension, unspecified; E11.9 Type 2 diabetes mellitus without complications; I10 Essential (primary) hypertension; E78.5 Hyperlipidemia, unspecified; Z79.02 Long term (current) use of antithrombotics/antiplatelets; Z79.84 Long term (current) use of oral hypoglycemic drugs; Z79.899 Other long term (current) drug therapy; Z03.818 Encounter for observation for suspected exposure to other biological agents ruled out
CPT/HCPCS: 0241U; 36415; 70450; 71045; 72125; 73502; 73562; 80048; 80076; 80307; 83690; 83880; 84484; 85025; 85610; 93005; 96360; 99284; 99285

== ENCOUNTER → 2024-05-17 15:53 | Outpatient (BNV) | payer MEDICARE, SELFPAY | PROVIDERS: Emergency Provider Emergency Medicine; PCP Internal Medicine; Visit Provider Internal Medicine Cardiovascular Disease | DX: I44.0 Atrioventricular block, first degree (principal) | CPT/HCPCS: 93010 ==

== ENCOUNTER → 2024-05-17 15:54 | Outpatient (BNV) | payer MEDICARE, SELFPAY | PROVIDERS: Emergency Provider Emergency Medicine; PCP Internal Medicine; Visit Provider Radiology Vascular & Interventional Radiology | DX: R41.82 Altered mental status, unspecified (principal); M25.552 Pain in left hip; M25.562 Pain in left knee; R40.20 Unspecified coma | CPT/HCPCS: 70450; 71045; 72125; 73502; 73562 ==

== ENCOUNTER 2024-10-16 11:18 | Outpatient (REF) | payer MEDICARE, SELFPAY ==
[2024-10-16 11:23] LABS: MANUAL DIFF FLAG NO
[2024-10-16 11:36] LABS: Appearance Urine Clear; Glucose Urine UA Negative (Negative); PH 7.5 (5.0-9.0); Specific Gravity - Urine 1.015 (1.005-1.025)
[2024-10-16 11:40] LABS: Hematocrit 37.7 % (42.0-52.0); Hemoglobin 13.1 g/dl (14.0-18.0); Imm Gran Abs Auto 0.04 X10*3/uL (0.00-0.03); Imm Gran Pct Auto 0.6 % (0.0-0.4); Lymphocytes Absolute Auto 1.2 X10*3/uL (1.2-4.9); Mean Corpuscular HGB Conc 34.7 g/dl (31.0-36.0); Mean Corpuscular Hemoglobin 32.8 pg (27.0-33.0); Mean Corpuscular Volume 94.5 fL (80.0-98.0); NRBC Abs Auto 0.000 X10*3/uL (0.0-0.012); NRBC Pct Auto 0.0 /100WBC (0.0-0.2); Platelet Count 375 X10*3/uL (160-400); Red Blood Count 3.99 X10*6/uL (4.60-5.80); White Blood Count 6.8 X10*3/uL (4.8-10.8)
[2024-10-16 11:45] LABS: Hemoglobin A1C 142.2480 umol/L; Total Hemoglobin (HGBA1C) 3407.8421 umol/L
[2024-10-16 12:05] LABS: Alanine Aminotransferase 14 U/L (0-40); Albumin Level 4.5 g/dL (3.5-5.0); Alkaline Phosphatase 67 U/L (39-117); Anion Gap 13 (12-20); Aspartate Amino Transferase 17 U/L (5-37); Blood Urea Nitrogen 21 mg/dL (9-16); Calcium 9.2 mg/dL (8.4-10.2); Carbon Dioxide 24 mmol/L (22-29); Chloride 104 mmol/L (96-108); Cholesterol 136 mg/dL (<200); Estimated Glomerular Filt Rate > 60; HDL Cholesterol 44 mg/dL (>40); Potassium 3.9 mmol/L (3.3-5.1); Sodium 137 mmol/L (135-145); Total Protein 6.9 g/dL (6.5-8.0); Triglycerides 83 mg/dL (<150)
[2024-10-16 12:08] LABS: Microalbum/Creatinine Ratio Ur 9.7 ug/mg cr (<30)
[2024-10-16 12:27] LABS: PSA,Total (Free>4and<10) 1.63 ng/mL (0.00-4.00)
== END 2024-10-16 11:19 | disposition home or self-care (01) ==
LOC: HO.LNP 11:18
PROVIDERS: Visit Provider Internal Medicine
DX: Z00.00 Encounter for general adult medical examination without abnormal findings (principal); Z12.5 Encounter for screening for malignant neoplasm of prostate; I10 Essential (primary) hypertension; E78.00 Pure hypercholesterolemia, unspecified; E11.40 Type 2 diabetes mellitus with diabetic neuropathy, unspecified; N40.0 Benign prostatic hyperplasia without lower urinary tract symptoms
CPT/HCPCS: 80053; 80061; 81001; 82043; 82570; 83036; 84153; 85025